=== PATIENT | female | born 1990 | race American Indian/Alaskan Native ===

== ENCOUNTER 2019-12-23 11:55 | Inpatient (IN) | payer BC, OTHER ==
[2019-12-23] MEDS ORDERED: fentaNYL 100 MCG/2 ML INJ IV PRN (13:57)
[2019-12-23] MEDS ORDERED: LIDOCAINE (2%) 20 MG/1 ML VIAL 20 ML MDV INFILTRATI ONE (13:57)
[2019-12-23] MEDS ORDERED: BUTORPHANOL 2 MG/1 ML INJ IV PRN ×2 (13:57)
[2019-12-23] MEDS ORDERED: NALOXONE 0.4 MG/1 ML INJ IV PRN (13:57)
[2019-12-23] MEDS ORDERED: TERBUTALINE 1 MG/1 ML INJ SUB-Q PRN (13:57)
[2019-12-23] MEDS ORDERED: TERBUTALINE 1 MG/1 ML INJ IVP PRN (13:57)
[2019-12-23] MEDS ORDERED: MINERAL OIL 30 ML ORAL LIQD PO PRN (13:57)
[2019-12-23] MEDS ORDERED: ePHEDrine SULFATE 50 MG/1 ML INJ IV PRN (13:57)
[2019-12-23] MEDS ORDERED: ONDANSETRON 4 MG/2 ML INJ IV PRN (13:57)
[2019-12-23] MEDS ORDERED: OXYTOCIN 20 UNIT/1000ML DRIP 20 UNITS/1,000 ML BAG IV SCH (14:00)
[2019-12-23] MEDS ORDERED: DINOPROSTONE 10 MG VAG SUPP VG ONE (14:57)
--- NOTE | 2019-12-23 15:23 | Ultrasound Report ---
ULTRASOUND BIOPHYSICAL PROFILE INDICATION / CLINICAL INFORMATION: Evaluate well-being. COMPARISON: None available. FINDINGS: BREATHING MOVEMENT = 2 GROSS BODY MOVEMENT = 0 TONE = 0 QUALITATIVE AMNIOTIC FLUID VOLUME = 2 TOTAL BIOPHYSICAL SCORE = 8 AMNIOTIC FLUID INDEX (cm) = 15.3 PRESENTATION: Cephalic. HEART RATE (beats per minute): 167 IMPRESSION: 1. biophysical profile = 08/19 Signer Name: Jak Rendon MD Signed: 12/23/2019 3:19 PM Workstation Name: [id number]
[2019-12-23 16:19] LABS: Hematocrit 38.8 % (30.3-42.9); Hemoglobin 12.4 gm/dl (10.1-14.3); Mean Corpuscular HGB Conc 32 % (30-34); Mean Corpuscular Volume 89 fl (79-97); Platelet Count 211 K/mm3 (140-440); Red Blood Count 4.36 M/mm3 (3.65-5.03); Red Cell Distribution Width 15.4 % (13.2-15.2)
[2019-12-23 16:37] LABS: Alanine Aminotransferase 31 units/L (7-56); Uric Acid 4.9 mg/dL (3.5-7.6)
[2019-12-23] MEDS: LACTATED RINGERS 1,000 ML IV SCH (17:00)
--- NOTE | 2019-12-23 18:14 | History and Physical Report ---
History of Present Illness Date of examination: 12/23/19 Date of admission: 12/23/19 14:56 Chief complaint: decreased movement History of present illness: Pt is a 29 year old CRISTINO 12/30/19 at 39w0d who presents with complaint of decreased movement since this morning. She denies vaginal bleeding or leakage of fluid. She has had care at [facility] with comanagement by [facility] complicated by morbid obesity, chronic hypertension on no meds, alpha thalassemia carrier, h/o 32 wk IUFD, placental lakes, genital herpes without lesion or prodrome, glucose intolerance, and two vessel cord. She is GBS negative. She does not desire future fertility. 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) Family/Genetic History: diabetes, hypertension, cancer Social history: no significant social history - Obstetrical History Expected Date of Delivery: 12/30/19 Actual Gestation: 39 Week(s) 0 Day(s) : 3 Para: 1 Hx # Term Pregnancies: 1 Number of Pregnancies: 1 Spontaneous Abortions: 0 Induced : 0 Number of Living Children: 1 Medications and Allergies Allergies Allergy/AdvReac Type Severity Reaction Status Date / Time No Known Allergies Allergy Unverified 10/22/19 12:36 Home Medications Medication Instructions Recorded Confirmed Last Taken Type Aspirin [Aspirin BABY CHEW TAB] 81 mg PO DAILY 10/22/19 10/22/19 10/21/19 22:30 History Loratadine 10 mg PO DAILY 10/22/19 10/22/19 10/21/19 22:30 History Vitamin 1 tab PO DAILY 10/22/19 10/22/19 10/21/19 09:00 History Active Meds: Active Medications Butorphanol Tartrate (Stadol) 1 mg IV Q2H PRN PRN Reason: Pain, Moderate(4-6) LABOR PAIN Butorphanol Tartrate (Stadol) 2 mg IV Q2H PRN PRN Reason: Pain , Severe (7-10) Ephedrine Sulfate (Ephedrine Sulfate) 10 mg IV Q2M PRN PRN Reason: Hypotension Fentanyl (Sublimaze) 100 mcg IV Q2H PRN PRN Reason: Pain,Severe (7-10) LABOR PAIN Oxytocin/Sodium Chloride (Pitocin/Ns 20 Unit/1000ml Drip) 20 units in 1,000 mls @ 125 mls/hr IV DIRECT LEYLA Oxytocin/Sodium Chloride (Pitocin/Ns 30 Unit/500ml) 30 units in 500 mls @ 1 mls/hr IV TITR LEYLA; Protocol Lactated Ringer's (Lactated Ringers) 1,000 mls @ 125 mls/hr IV DIRECT LEYLA Last Admin: 12/23/19 17:00 Dose: 125 mls/hr Documented by: Mineral Oil (Mineral Oil) 30 ml PO QHS PRN PRN Reason: Constipation Naloxone HCl (Naloxone) 0.1 mg IV Q2MIN PRN PRN Reason: Res Rate </= 8 or 02 SAT < 92% Ondansetron HCl (Zofran) 4 mg IV Q8H PRN PRN Reason: Nausea And Vomiting Terbutaline Sulfate (Brethine) 0.25 mg SUB-Q ONCE PRN PRN Reason: Hyperstimulation/Hypertonicity Terbutaline Sulfate (Brethine) 0.25 mg IVP ONCE PRN PRN Reason: Hyperstimulation/Hypertonicity Review of Systems All systems: negative - Vital Signs Vital signs: Vital Signs Pulse BP 102 H 110/67 12/23/19 14:24 12/23/19 14:24 Temp Pulse Resp BP Pulse Ox 98.6 F 124 H 16 110/67 98 12/23/19 14:27 12/23/19 18:05 12/23/19 14:27 12/23/19 14:27 12/23/19 18:05 - Obstetrical FHR: auscultation normal Results Result Diagrams: 12/23/19 14:45 12/23/19 14:45 Abnormal lab results 12/23/19 12/23/19 Range/Units 14:45 14:45 RDW 15.4 H (13.2-15.2) % Creatinine 0.5 L (0.6-1.2) mg/dL AST 99 H (5-40) units/L Lactate Dehydrogenase 1185 H (91-180) units/L All other labs normal. Assessment and Plan A: IUP at 39w0d Decreased movement Nonreassuring status (BPP 4/8) H/o 32 wk IUFD Morbid Obesity Hypertension GBS Negative Undesired Fertility P: Admit to labor and delivery Begin cervical ripening PIH panel Closely monitor maternal and status
[2019-12-24] MEDS ORDERED: OXYTOCIN DRIP 30 UNITS/500 ML BAG IV SCH (02:00)
--- NOTE | 2019-12-24 08:03 | Progress Note ---
Assessment and Plan A: IUP at 39w0d Decreased movement Nonreassuring status (BPP 4/8) H/o 32 wk IUFD Morbid Obesity Chronic hypertension GBS Negative 2 vessel cord Undesired Fertility P: Cytotec sublingual q4hr Closely monitor maternal and status Subjective - Subjective Date of service: 12/24/19 Principal diagnosis: Decreased movement Interval history: HD2 of IOL for BPP 4/8, morbid obesity, h/o IUFD, and chronic hypertension. She has received Cervidil overnight and is starting to feel contractions. Patient reports: contractions, no new complaints, no loss of fluid, no vaginal bleeding Objective - Vital Signs Vital Signs: Vital Signs - 12hr 12/23/19 12/23/19 12/23/19 20:02 20:07 20:12 Pulse Rate 116 H 107 H 110 H O2 Sat by Pulse 100 99 100 Oximetry 12/23/19 12/23/19 12/23/19 20:17 20:22 20:27 Pulse Rate 114 H 114 H 119 H O2 Sat by Pulse 100 100 100 Oximetry 12/23/19 12/23/19 12/23/19 20:32 20:37 20:42 Pulse Rate 123 H 117 H 121 H O2 Sat by Pulse 99 99 99 Oximetry 12/23/19 12/23/19 12/23/19 20:47 20:54 20:59 Pulse Rate 115 H 112 H 122 H O2 Sat by Pulse 99 100 99 Oximetry 12/23/19 12/23/19 12/23/19 21:04 21:09 21:14 Pulse Rate 110 H 113 H 108 H O2 Sat by Pulse 98 100 100 Oximetry 12/23/19 12/23/19 12/23/19 21:19 21:24 21:29 Pulse Rate 109 H 112 H 116 H O2 Sat by Pulse 99 98 99 Oximetry 12/23/19 12/23/19 12/23/19 21:34 21:39 21:44 Pulse Rate 117 H 119 H 128 H O2 Sat by Pulse 98 99 99 Oximetry 12/23/19 12/23/19 12/23/19 21:49 21:54 21:59 Pulse Rate 107 H 127 H 116 H O2 Sat by Pulse 98 97 98 Oximetry 12/23/19 12/23/19 12/23/19 22:04 22:09 22:14 Pulse Rate 116 H 121 H 117 H O2 Sat by Pulse 97 99 98 Oximetry 12/23/19 12/23/19 12/23/19 22:19 22:24 22:29 Pulse Rate 113 H 110 H 110 H O2 Sat by Pulse 98 99 100 Oximetry 12/23/19 12/23/19 12/23/19 22:34 22:39 22:44 Pulse Rate 100 H 114 H 105 H O2 Sat by Pulse 97 96 97 Oximetry 12/23/19 12/23/19 12/23/19 22:49 22:54 22:59 Pulse Rate 114 H 106 H 111 H O2 Sat by Pulse 98 97 98 Oximetry 12/23/19 12/23/19 12/23/19 23:04 23:09 23:14 Pulse Rate 101 H 108 H 116 H O2 Sat by Pulse 97 99 98 Oximetry 12/23/19 12/23/19 12/23/19 23:19 23:24 23:29 Pulse Rate 104 H 113 H 107 H O2 Sat by Pulse 99 100 99 Oximetry 12/23/19 12/23/19 12/23/19 23:34 23:39 23:44 Pulse Rate 100 H 97 H 105 H O2 Sat by Pulse 97 99 97 Oximetry 12/23/19 12/24/19 12/24/19 23:49 00:00 00:05 Pulse Rate 103 H 122 H 112 H O2 Sat by Pulse 98 99 99 Oximetry 12/24/19 12/24/19 12/24/19 00:10 00:15 00:20 Pulse Rate 116 H 109 H 115 H O2 Sat by Pulse 98 97 98 Oximetry 12/24/19 12/24/19 12/24/19 00:25 00:30 00:35 Pulse Rate 105 H 115 H 105 H O2 Sat by Pulse 99 97 98 Oximetry 12/24/19 12/24/19 12/24/19 00:40 00:45 00:50 Pulse Rate 107 H 112 H 104 H O2 Sat by Pulse 97 98 97 Oximetry 12/24/19 12/24/19 12/24/19 00:55 01:00 01:05 Pulse Rate 110 H 113 H 107 H O2 Sat by Pulse 98 98 97 Oximetry 12/24/19 12/24/19 12/24/19 01:10 01:15 01:20 Pulse Rate 98 H 112 H 109 H O2 Sat by Pulse 98 98 96 Oximetry 12/24/19 12/24/19 12/24/19 01:25 01:30 01:35 Pulse Rate 99 H 105 H 116 H O2 Sat by Pulse 97 97 98 Oximetry 12/24/19 12/24/19 12/24/19 01:42 01:47 01:52 Pulse Rate 129 H 114 H 116 H O2 Sat by Pulse 100 100 100 Oximetry 12/24/19 12/24/19 12/24/19 01:57 02:02 02:07 Pulse Rate 110 H 109 H 114 H O2 Sat by Pulse 99 100 99 Oximetry 12/24/19 12/24/19 12/24/19 02:14 02:19 02:24 Pulse Rate 109 H 105 H 108 H O2 Sat by Pulse 98 98 99 Oximetry 12/24/19 12/24/19 12/24/19 02:29 02:34 02:39 Pulse Rate 106 H 105 H 124 H O2 Sat by Pulse 99 100 99 Oximetry 12/24/19 12/24/19 12/24/19 02:44 02:49 02:54 Pulse Rate 109 H 115 H 105 H O2 Sat by Pulse 97 98 98 Oximetry 12/24/19 12/24/19 12/24/19 02:59 03:04 03:09 Pulse Rate 101 H 101 H 103 H O2 Sat by Pulse 98 97 98 Oximetry 12/24/19 12/24/19 12/24/19 03:14 03:19 03:24 Pulse Rate 90 98 H 102 H O2 Sat by Pulse 96 97 98 Oximetry 12/24/19 12/24/19 12/24/19 03:29 03:34 03:39 Pulse Rate 100 H 102 H 110 H O2 Sat by Pulse 97 98 99 Oximetry 12/24/19 12/24/19 12/24/19 03:55 04:00 04:05 Pulse Rate 114 H 120 H 113 H O2 Sat by Pulse 98 98 98 Oximetry 12/24/19 12/24/19 12/24/19 04:10 04:15 04:20 Pulse Rate 109 H 105 H 100 H O2 Sat by Pulse 98 98 98 Oximetry 12/24/19 12/24/19 12/24/19 04:25 04:30 04:35 Pulse Rate 111 H 101 H 98 H O2 Sat by Pulse 98 98 98 Oximetry 12/24/19 12/24/19 12/24/19 04:40 04:45 04:50 Pulse Rate 95 H 91 H 92 H O2 Sat by Pulse 98 97 97 Oximetry 12/24/19 12/24/19 12/24/19 04:55 05:00 05:05 Pulse Rate 99 H 97 H 96 H O2 Sat by Pulse 99 99 99 Oximetry 12/24/19 12/24/19 12/24/19 05:10 05:15 05:20 Pulse Rate 97 H 105 H 100 H O2 Sat by Pulse 98 98 97 Oximetry 12/24/19 12/24/19 12/24/19 05:25 05:30 05:35 Pulse Rate 98 H 98 H 102 H O2 Sat by Pulse 97 97 99 Oximetry 12/24/19 12/24/19 12/24/19 05:51 05:56 06:01 Pulse Rate 121 H 101 H 103 H O2 Sat by Pulse 99 98 98 Oximetry 12/24/19 12/24/19 12/24/19 06:06 06:11 06:16 Pulse Rate 100 H 98 H 99 H O2 Sat by Pulse 97 97 97 Oximetry 12/24/19 12/24/19 12/24/19 06:21 06:26 06:31 Pulse Rate 93 H 96 H 95 H O2 Sat by Pulse 97 98 98 Oximetry 12/24/19 12/24/19 12/24/19 06:36 06:41 06:46 Pulse Rate 104 H 98 H 98 H O2 Sat by Pulse 99 98 98 Oximetry 12/24/19 12/24/19 12/24/19 06:51 06:56 07:01 Pulse Rate 99 H 101 H 100 H O2 Sat by Pulse 98 98 99 Oximetry 12/24/19 12/24/19 12/24/19 07:06 07:17 07:22 Pulse Rate 111 H 116 H 114 H O2 Sat by Pulse 97 100 98 Oximetry 12/24/19 12/24/19 12/24/19 07:27 07:28 07:32 Pulse Rate 102 H 104 H 105 H O2 Sat by Pulse 97 94 98 Oximetry 12/24/19 12/24/19 12/24/19 07:37 07:42 07:47 Pulse Rate 103 H 94 H 102 H O2 Sat by Pulse 98 97 97 Oximetry 12/24/19 07:52 Pulse Rate 104 H O2 Sat by Pulse 99 Oximetry - Exam Lungs: Normal air movement Abdomen: Present: soft FHR: other (difficulty tracing for long enough ) Uterine Contraction Monitor Mode: External Cervical Dilatation: 1 (per RN) Uterine Contraction Pattern: Irregular Extremities: normal - Labs Labs: Abnormal Labs 12/23/19 12/23/19 14:45 14:45 RDW 15.4 H Creatinine 0.5 L AST 99 H Lactate Dehydrogenase 1185 H Laboratory Results - last 24 hr 12/23/19 12/23/19 12/23/19 14:45 14:45 14:45 WBC 8.5 RBC 4.36 Hgb 12.4 Hct 38.8 MCV 89 MCH 29 MCHC 32 RDW 15.4 H Plt Count 211 Creatinine 0.5 L Estimated GFR > 60 Uric Acid 4.9 AST 99 H ALT 31 Lactate Dehydrogenase 1185 H Blood Type O POSITIVE Antibody Screen Negative
[2019-12-24] MEDS: miSOPROStol 25 MCG TAB PO SCH ×3 (09:55→20:04)
[2019-12-24] MEDS: LACTATED RINGERS 1,000 ML IV SCH (19:13)
[2019-12-24] MEDS ORDERED: ACETAMINOPHEN 325 MG TAB PO PRN (20:20)
[2019-12-25] MEDS: miSOPROStol 25 MCG TAB PO SCH ×2 (00:09→04:15)
[2019-12-25] MEDS ORDERED: LANOLIN/ZINC/DIMETHICONE (LANSINOH) 7 GM TP PRN ×2 (00:49→18:04)
--- NOTE | 2019-12-25 08:05 | Progress Note ---
Assessment and Plan A: IUP at 39w2d H/o 32 wk IUFD Morbid Obesity Chronic hypertension GBS Negative 2 vessel cord Undesired Fertility P: AROM scant clear fluid at 0740 Initiate low dose-Pitocin Closely monitor maternal and status Anticipate Subjective - Subjective Date of service: 12/25/19 Principal diagnosis: Decreased movement Interval history: HD3 of IOL for BPP 08/19, morbid obesity, h/o IUFD, and chronic hypertension. She has received Cervidil and Cytotec. Cervix remains unfavorable for induction. Patient reports: movement normal, contractions, no new complaints, no loss of fluid, no vaginal bleeding Objective - Vital Signs Vital Signs: Vital Signs - 12hr 12/24/19 12/24/19 12/24/19 20:14 20:19 20:24 Temperature Pulse Rate 116 H 114 H 110 H Respiratory Rate Blood Pressure O2 Sat by Pulse 99 98 98 Oximetry 12/24/19 12/24/19 12/24/19 20:29 20:34 20:39 Temperature Pulse Rate 113 H 113 H 111 H Respiratory Rate Blood Pressure O2 Sat by Pulse 99 99 98 Oximetry 12/24/19 12/24/19 12/24/19 20:44 20:49 20:54 Temperature Pulse Rate 104 H 109 H 104 H Respiratory Rate Blood Pressure O2 Sat by Pulse 99 99 98 Oximetry 12/24/19 12/24/19 12/24/19 20:59 21:04 21:09 Temperature Pulse Rate 105 H 108 H 103 H Respiratory Rate Blood Pressure O2 Sat by Pulse 98 99 98 Oximetry 12/24/19 12/24/19 12/24/19 21:21 21:26 21:31 Temperature Pulse Rate 117 H 113 H 115 H Respiratory Rate Blood Pressure O2 Sat by Pulse 99 98 99 Oximetry 12/24/19 12/24/19 12/24/19 21:36 21:41 21:46 Temperature Pulse Rate 106 H 104 H 102 H Respiratory Rate Blood Pressure O2 Sat by Pulse 98 99 99 Oximetry 12/24/19 12/24/19 12/24/19 21:51 21:56 22:01 Temperature Pulse Rate 105 H 102 H 107 H Respiratory Rate Blood Pressure O2 Sat by Pulse 99 98 98 Oximetry 12/24/19 12/24/19 12/24/19 22:06 22:11 22:16 Temperature Pulse Rate 99 H 104 H 106 H Respiratory Rate Blood Pressure O2 Sat by Pulse 98 99 99 Oximetry 12/24/19 12/24/19 12/24/19 22:21 22:26 22:31 Temperature Pulse Rate 106 H 101 H 102 H Respiratory Rate Blood Pressure O2 Sat by Pulse 98 98 98 Oximetry 12/24/19 12/24/19 12/24/19 22:36 22:41 22:53 Temperature Pulse Rate 99 H 99 H 112 H Respiratory Rate Blood Pressure O2 Sat by Pulse 99 98 100 Oximetry 12/24/19 12/24/19 12/24/19 22:58 23:03 23:08 Temperature Pulse Rate 105 H 102 H 101 H Respiratory Rate Blood Pressure O2 Sat by Pulse 99 98 98 Oximetry 12/24/19 12/24/19 12/24/19 23:13 23:18 23:23 Temperature Pulse Rate 100 H 96 H 94 H Respiratory Rate Blood Pressure O2 Sat by Pulse 98 98 99 Oximetry 12/24/19 12/24/19 12/24/19 23:26 23:28 23:33 Temperature Pulse Rate 98 H 102 H 93 H Respiratory Rate Blood Pressure O2 Sat by Pulse 93 96 98 Oximetry 12/24/19 12/24/19 12/24/19 23:38 23:43 23:48 Temperature Pulse Rate 96 H 96 H 95 H Respiratory Rate Blood Pressure O2 Sat by Pulse 98 99 98 Oximetry 12/24/19 12/24/19 12/25/19 23:53 23:58 00:03 Temperature Pulse Rate 101 H 98 H 106 H Respiratory Rate Blood Pressure O2 Sat by Pulse 97 98 98 Oximetry 12/25/19 12/25/19 12/25/19 00:08 00:13 00:18 Temperature Pulse Rate 105 H 104 H 107 H Respiratory Rate Blood Pressure O2 Sat by Pulse 99 98 98 Oximetry 12/25/19 12/25/19 12/25/19 00:23 00:28 00:33 Temperature Pulse Rate 95 H 95 H 99 H Respiratory Rate Blood Pressure O2 Sat by Pulse 97 97 97 Oximetry 12/25/19 12/25/19 12/25/19 00:34 00:44 00:49 Temperature Pulse Rate 97 H 111 H 108 H Respiratory Rate Blood Pressure O2 Sat by Pulse 92 99 98 Oximetry 12/25/19 12/25/19 12/25/19 00:54 00:59 01:04 Temperature Pulse Rate 102 H 100 H 102 H Respiratory Rate Blood Pressure O2 Sat by Pulse 98 99 97 Oximetry 12/25/19 12/25/19 12/25/19 01:09 01:14 01:19 Temperature Pulse Rate 95 H 97 H 112 H Respiratory Rate Blood Pressure O2 Sat by Pulse 100 98 99 Oximetry 12/25/19 12/25/19 12/25/19 01:24 01:29 01:32 Temperature Pulse Rate 95 H 104 H 92 H Respiratory Rate Blood Pressure O2 Sat by Pulse 98 99 89 Oximetry 12/25/19 12/25/19 12/25/19 01:34 01:39 01:44 Temperature Pulse Rate 89 102 H 96 H Respiratory Rate Blood Pressure O2 Sat by Pulse 97 99 97 Oximetry 12/25/19 12/25/19 12/25/19 01:49 01:54 01:59 Temperature Pulse Rate 98 H 96 H 92 H Respiratory Rate Blood Pressure O2 Sat by Pulse 98 96 98 Oximetry 12/25/19 12/25/19 12/25/19 02:01 02:04 02:08 Temperature Pulse Rate 94 H 93 H 101 H Respiratory Rate Blood Pressure O2 Sat by Pulse 94 98 92 Oximetry 12/25/19 12/25/19 12/25/19 02:09 02:14 02:19 Temperature Pulse Rate 102 H 96 H 88 Respiratory Rate Blood Pressure O2 Sat by Pulse 95 100 100 Oximetry 12/25/19 12/25/19 12/25/19 02:24 02:29 02:42 Temperature Pulse Rate 92 H 94 H 118 H Respiratory Rate Blood Pressure O2 Sat by Pulse 100 100 98 Oximetry 12/25/19 12/25/19 12/25/19 02:47 02:52 02:54 Temperature Pulse Rate 112 H 93 H 89 Respiratory Rate Blood Pressure O2 Sat by Pulse 98 97 93 Oximetry 12/25/19 12/25/19 12/25/19 02:57 03:01 03:02 Temperature Pulse Rate 91 H 90 97 H Respiratory Rate Blood Pressure O2 Sat by Pulse 97 94 97 Oximetry 12/25/19 12/25/19 12/25/19 03:07 03:10 03:12 Temperature Pulse Rate 94 H 96 H 89 Respiratory Rate Blood Pressure O2 Sat by Pulse 97 94 97 Oximetry 12/25/19 12/25/19 12/25/19 03:17 03:22 03:27 Temperature Pulse Rate 100 H 97 H 90 Respiratory Rate Blood Pressure O2 Sat by Pulse 97 99 98 Oximetry 12/25/19 12/25/19 12/25/19 03:32 03:34 03:37 Temperature Pulse Rate 92 H 94 H 89 Respiratory Rate Blood Pressure O2 Sat by Pulse 98 93 97 Oximetry 12/25/19 12/25/19 12/25/19 03:39 03:42 03:47 Temperature Pulse Rate 92 H 90 106 H Respiratory Rate Blood Pressure O2 Sat by Pulse 93 99 98 Oximetry 12/25/19 12/25/19 12/25/19 03:52 03:57 04:00 Temperature Pulse Rate 82 88 85 Respiratory Rate Blood Pressure O2 Sat by Pulse 97 96 94 Oximetry 12/25/19 12/25/19 12/25/19 04:02 04:06 04:07 Temperature Pulse Rate 98 H 105 H 93 H Respiratory Rate Blood Pressure O2 Sat by Pulse 97 93 100 Oximetry 12/25/19 12/25/19 12/25/19 04:12 04:26 04:31 Temperature Pulse Rate 105 H 103 H 99 H Respiratory Rate Blood Pressure O2 Sat by Pulse 99 98 98 Oximetry 12/25/19 12/25/19 12/25/19 04:36 04:41 04:46 Temperature Pulse Rate 100 H 102 H 99 H Respiratory Rate Blood Pressure O2 Sat by Pulse 98 98 98 Oximetry 12/25/19 12/25/19 12/25/19 04:51 04:56 05:01 Temperature Pulse Rate 98 H 97 H 97 H Respiratory Rate Blood Pressure O2 Sat by Pulse 98 98 98 Oximetry 12/25/19 12/25/19 12/25/19 05:06 05:11 05:16 Temperature Pulse Rate 94 H 99 H 98 H Respiratory Rate Blood Pressure O2 Sat by Pulse 99 97 98 Oximetry 12/25/19 12/25/19 12/25/19 05:21 05:26 05:31 Temperature Pulse Rate 94 H 109 H 97 H Respiratory Rate Blood Pressure O2 Sat by Pulse 98 97 98 Oximetry 12/25/19 12/25/19 12/25/19 05:40 05:45 05:50 Temperature Pulse Rate 115 H 96 H 101 H Respiratory Rate Blood Pressure O2 Sat by Pulse 100 98 98 Oximetry 12/25/19 12/25/19 12/25/19 05:55 06:00 06:05 Temperature Pulse Rate 94 H 101 H 99 H Respiratory Rate Blood Pressure O2 Sat by Pulse 98 99 98 Oximetry 12/25/19 12/25/19 12/25/19 06:10 06:15 06:18 Temperature Pulse Rate 99 H 97 H 88 Respiratory Rate Blood Pressure O2 Sat by Pulse 98 96 94 Oximetry 12/25/19 12/25/19 12/25/19 06:20 06:23 06:31 Temperature Pulse Rate 83 99 H 111 H Respiratory Rate Blood Pressure O2 Sat by Pulse 95 94 99 Oximetry 12/25/19 12/25/19 12/25/19 06:36 06:39 06:41 Temperature Pulse Rate 90 96 H 87 Respiratory Rate Blood Pressure O2 Sat by Pulse 98 94 98 Oximetry 12/25/19 12/25/19 12/25/19 06:46 06:47 06:51 Temperature Pulse Rate 105 H 108 H 82 Respiratory Rate Blood Pressure O2 Sat by Pulse 94 93 97 Oximetry 12/25/19 12/25/19 12/25/19 06:52 06:56 07:01 Temperature Pulse Rate 80 88 85 Respiratory Rate Blood Pressure O2 Sat by Pulse 93 100 100 Oximetry 12/25/19 12/25/19 12/25/19 07:06 07:08 07:11 Temperature Pulse Rate 95 H 99 H 94 H Respiratory Rate Blood Pressure O2 Sat by Pulse 99 94 98 Oximetry 12/25/19 12/25/19 12/25/19 07:14 07:16 07:21 Temperature 98.3 F Pulse Rate 101 H 95 H 96 H Respiratory 20 Rate Blood Pressure 132/82 O2 Sat by Pulse 98 100 Oximetry 12/25/19 12/25/19 12/25/19 07:26 07:31 07:36 Temperature Pulse Rate 100 H 111 H 98 H Respiratory Rate Blood Pressure O2 Sat by Pulse 98 99 99 Oximetry 12/25/19 12/25/19 12/25/19 07:46 07:51 07:56 Temperature Pulse Rate 105 H 99 H 104 H Respiratory Rate Blood Pressure O2 Sat by Pulse 100 99 98 Oximetry 12/25/19 08:01 Temperature Pulse Rate 102 H Respiratory Rate Blood Pressure O2 Sat by Pulse 97 Oximetry - Exam Lungs: Normal air movement Abdomen: Present: soft FHR: category 1 Uterine Contraction Monitor Mode: External Cervical Dilatation: 2 Cervical Effacement Percentage: 20 station: -3 Uterine Contraction Pattern: Irregular - Labs Labs: Abnormal Labs 12/23/19 12/23/19 14:45 14:45 RDW 15.4 H Creatinine 0.5 L AST 99 H Lactate Dehydrogenase 1185 H
--- NOTE | 2019-12-25 12:33 | Event Note ---
Date: 12/25/19 SVE /-3, right hand presenting. Hand displaced, IUPC and FSE placed. Continue to closely monitor. Anticipate .
[2019-12-25] MEDS: LACTATED RINGERS 1,000 ML IV SCH (13:37)
[2019-12-25] MEDS ORDERED: LIDOCAINE (2%) 20 MG/1 ML VIAL 20 ML MDV INFILTRATI ONE (17:28)
--- NOTE | 2019-12-25 17:55 | Procedure Note ---
OB Delivery Note - Delivery Date of Delivery: 12/25/19 Surgeon: RED CALVILLO ([facility]) Estimated blood loss: other (400cc) - Vaginal Delivery presentation: vertex, compound (right arm presenting) Intrapartum events: PROM->1hr before delivery, mult. late decelerations, mult.variable deceleratio Delivery induction: other (Cervidil and Cytotec) Delivery augmentation: rupture of membranes, pitocin Delivery monitor: internal FHT Route of delivery: Delivery placenta: spontaneous Delivery cord: nuchal cord (nuchal x1, body x2), 2 umbilical vessels Episiotomy: none Delivery laceration: other (sulcus and left labial) Delivery repair: vicryl Anesthesia: local Delivery comments: Pt noted to have lip of cervix, reduced with pushing due to prolonged FHR deceleration. Right arm delivered, followed by head delivered OA, resituted LOT. Somersaulted through nuchal and body cords. Bulb suction on maternal abdomen. Apgars 8/9. Delayed cord clamping, cut by grandmother. Pitocin infusing. Placenta delivered spontaneously and intact, 2 vessel cord. Sulcus laceration and left labial laceration repaired with 3-0 Vicryl in running fashion to excellent hemostasis. Counts correct. - A at 1 minute: 8 at 5 minutes: 9 Infant Gender: Male
[2019-12-25] MEDS ORDERED: diphenhydrAMINE 25 MG CAP PO PRN (18:04)
[2019-12-25] MEDS ORDERED: ONDANSETRON 4 MG/2 ML INJ IV PRN (18:04)
[2019-12-25] MEDS ORDERED: MAGNESIUM HYDROXIDE (MOM) ORAL LIQD UDC PO PRN (18:04)
[2019-12-25] MEDS ORDERED: PROMETHAZINE 25 MG TAB PO PRN (18:04)
[2019-12-25] MEDS ORDERED: WITCH HAZEL/ GLYCERIN PAD TP PRN (18:04)
[2019-12-25] MEDS ORDERED: PROMETHAZINE 25 MG RECT SUPP PR PRN (18:04)
[2019-12-25] MEDS ORDERED: ACETAMINOPHEN 325 MG TAB PO PRN (18:04)
[2019-12-25] MEDS ORDERED: BENZOCAINE/MENTHOL 20/0.5% TOP SPRAY 56 GM TP PRN (18:04)
[2019-12-26] MEDS ORDERED: DIPHtheria,PERTUSSIS(ACELL),TETANUS VACCINE/PF 0.5 ML VIAL IM ONE (05:55)
--- NOTE | 2019-12-26 07:56 | Progress Note ---
Assessment and Plan - Patient Problems (1) Vaginal delivery Current Visit: Yes Status: Acute Plan to address problem: Patient doing well Discharge home Subjective - Subjective Date of service: 12/26/19 Principal diagnosis: Decreased movement Interval history: The patient was without any significant complaints. She reports ports that her pain is well controlled. She is tolerating regular diet. Patient reports: appetite normal, voiding normally, pain well controlled [place]: doing well Objective - Vital Signs Latest vital signs: Vital Signs Temp Pulse Resp BP Pulse Ox 12/26/19 04:56 116 H 12/26/19 01:10 120 H 12/25/19 23:51 98.2 F 128 H 20 110/65 96 12/25/19 20:03 98.9 F 118 H 22 128/69 98 12/25/19 19:41 109 H 145/81 12/25/19 19:15 121 H 118/77 12/25/19 19:01 125 H 121/75 12/25/19 18:15 129 H 128/73 12/25/19 17:48 103 H 100 12/25/19 17:45 110 H 128/65 12/25/19 17:43 107 H 100 12/25/19 17:38 105 H 100 12/25/19 17:33 108 H 100 12/25/19 17:30 106 H 116/66 12/25/19 17:28 105 H 100 12/25/19 17:23 118 H 100 12/25/19 17:18 123 H 100 12/25/19 17:13 118 H 99 12/25/19 17:08 111 H 100 12/25/19 17:03 123 H 100 12/25/19 16:58 121 H 100 12/25/19 16:53 112 H 133/83 100 12/25/19 16:48 124 H 100 12/25/19 16:46 118 H 94 12/25/19 16:43 115 H 99 12/25/19 16:40 123 H 93 12/25/19 16:38 113 H 98 12/25/19 16:33 125 H 100 12/25/19 16:28 115 H 100 12/25/19 16:23 121 H 130/82 100 12/25/19 16:18 117 H 100 12/25/19 16:13 115 H 100 12/25/19 16:08 127 H 97 12/25/19 16:03 117 H 100 12/25/19 15:58 110 H 99 12/25/19 15:53 123 H 141/92 67 L 12/25/19 15:48 114 H 97 12/25/19 15:43 121 H 100 12/25/19 15:38 115 H 99 12/25/19 15:33 112 H 98 12/25/19 15:28 109 H 99 12/25/19 15:23 120 H 123/86 99 12/25/19 15:18 105 H 99 12/25/19 15:13 121 H 98 12/25/19 15:08 109 H 99 12/25/19 15:02 111 H 98 12/25/19 14:57 116 H 99 12/25/19 14:53 110 H 138/88 12/25/19 14:52 113 H 99 12/25/19 14:47 108 H 100 12/25/19 14:42 109 H 99 12/25/19 14:37 118 H 98 12/25/19 14:32 111 H 100 12/25/19 14:27 106 H 99 12/25/19 14:23 108 H 129/85 12/25/19 14:22 109 H 99 12/25/19 14:17 107 H 100 12/25/19 14:15 110 H 62 L 12/25/19 14:12 108 H 98 12/25/19 14:07 108 H 99 12/25/19 14:02 104 H 99 12/25/19 13:57 114 H 100 12/25/19 13:53 104 H 133/86 12/25/19 13:52 104 H 98 12/25/19 13:47 114 H 99 12/25/19 13:42 116 H 100 12/25/19 13:37 106 H 98 12/25/19 12:08 110 H 100 12/25/19 12:03 121 H 100 12/25/19 11:58 116 H 100 12/25/19 11:53 114 H 131/88 100 12/25/19 11:48 115 H 100 12/25/19 11:43 111 H 98 12/25/19 11:38 105 H 98 12/25/19 11:33 113 H 98 12/25/19 11:28 107 H 98 12/25/19 11:23 111 H 128/81 98 12/25/19 11:18 111 H 98 12/25/19 11:16 98.8 F 20 12/25/19 11:13 109 H 99 12/25/19 10:53 110 H 124/81 12/25/19 10:51 114 H 97 12/25/19 10:46 120 H 98 12/25/19 10:41 125 H 99 12/25/19 10:36 116 H 99 12/25/19 10:31 120 H 98 12/25/19 10:26 114 H 98 12/25/19 10:23 108 H 130/79 12/25/19 10:21 121 H 100 12/25/19 10:17 99 H 92 12/25/19 10:16 93 H 96 12/25/19 10:11 106 H 98 12/25/19 10:06 120 H 98 12/25/19 10:01 107 H 97 12/25/19 09:56 112 H 99 12/25/19 09:52 118 H 131/78 12/25/19 09:51 118 H 98 12/25/19 09:46 120 H 99 12/25/19 09:41 119 H 98 12/25/19 09:36 109 H 98 12/25/19 09:31 122 H 98 12/25/19 09:26 117 H 98 12/25/19 08:56 107 H 97 12/25/19 08:51 112 H 97 12/25/19 08:46 103 H 98 12/25/19 08:41 113 H 99 12/25/19 08:36 102 H 99 12/25/19 08:31 109 H 99 12/25/19 08:26 113 H 99 12/25/19 08:21 98 H 99 12/25/19 08:16 108 H 98 12/25/19 08:11 104 H 99 12/25/19 08:06 105 H 98 12/25/19 08:01 102 H 97 12/25/19 07:56 104 H 98 Intake and Output 12/25/19 12/26/19 12/26/19 22:59 06:59 14:59 Intake Total 240 960 Output Total 1100 Balance -860 960 Intake: Oral 240 960 Output: Urine 1100 Void 1100 Other: Total, Intake Amount 240 480 Total, Output Amount 600 # Voids Void 1 1 # Bowel Movements 0 0 - Exam Uterus: Present: normal, firm
--- NOTE | 2019-12-26 07:57 | Discharge Summary ---
Providers - Providers Date of Admission: 12/23/19 14:56 Date of discharge: 12/26/19 Attending physician: ARMANDO SPARKS Primary care physician: ARMANDO SPARKS Hospitalization Reason for admission: induction of labor Delivery: Discharge diagnosis: IUP at term delivered Hospital course: The patient was admitted for induction of labor secondary to decreased movement and a history of chronic hypertension. The patient had a successful vaginal delivery. Her course was uneventful. Condition at discharge: Good Disposition: DC-01 TO HOME OR SELFCARE - Discharge Diagnoses (1) Vaginal delivery Status: Acute Plan - Discharge Medications Prescriptions: Ibuprofen [Motrin] 600 mg PO Q6H PRN #60 tablet PRN Reason: Pain HYDROcodone/APAP 5-325 [Hurt 5/325] 1 each PO Q6HR PRN #15 tablet PRN Reason: Pain - Provider Discharge Summary Activity: no sex for 6 weeks, no heavy lifting 4 weeks, no strenuous exercise Diet: routine Instructions: routine Additional instructions: [] Smoking cessation referral if applicable(refer to patient education folder for contact #) [] Refer to [facility] Booklet Call your doctor immediately for: * Fever > 100.5 * Heavy vaginal bleeding ( >1 pad per hour) * Severe persistent headache * Shortness of breath * Reddened, hot, painful area to leg or breast * Schedule visit in 4 weeks - Follow up plan
[2019-12-26] MEDS: IBUPROFEN 600 MG TAB PO SCH ×2 (10:09→21:48)
[2019-12-26 12:26] LABS: Hematocrit 32.1 % (30.3-42.9)
[2019-12-26 16:45] VITALS: BP 124/78
== END 2019-12-26 22:20 | disposition home or self-care (01) | DRG 768 ==
LOC: TRG 11:55 → APU 12:02 → TRG 14:54 → LD 14:56 → OB 12-25 19:55
PROVIDERS: ADMIT Obstetrics & Gynecology; ATTEND Obstetrics & Gynecology
PROC: 10E0XZZ Delivery of Products of Conception, External Approach (ICD-10-PCS; principal; 2019-12-25)
PROC: 0UQM0ZZ Repair Vulva, Open Approach (ICD-10-PCS; 2019-12-25)
PROC: 0UQG0ZZ Repair Vagina, Open Approach (ICD-10-PCS; 2019-12-25)
PROC: 10H07YZ Insertion of Other Device into Products of Conception, Via Natural or Artificial Opening (ICD-10-PCS; 2019-12-25)
PROC: 3E0P7VZ Introduction of Hormone into Female Reproductive, Via Natural or Artificial Opening (ICD-10-PCS; 2019-12-25)
PROC: 3E0234Z Introduction of Serum, Toxoid and Vaccine into Muscle, Percutaneous Approach (ICD-10-PCS; 2019-12-26)
DX: O76 Abnormality in fetal heart rate and rhythm complicating labor and delivery (principal); Z37.0 Single live birth; O99.354 Diseases of the nervous system complicating childbirth; O71.4 Obstetric high vaginal laceration alone; O10.92 Unspecified pre-existing hypertension complicating childbirth; G43.909 Migraine, unspecified, not intractable, without status migrainosus; O99.214 Obesity complicating childbirth; E66.01 Morbid (severe) obesity due to excess calories; O69.81X0 Labor and delivery complicated by cord around neck, without compression, not applicable or unspecified; Z79.82 Long term (current) use of aspirin; Z23 Encounter for immunization; Z82.49 Family history of ischemic heart disease and other diseases of the circulatory system; Z83.3 Family history of diabetes mellitus; Z90.49 Acquired absence of other specified parts of digestive tract; Z3A.39 39 weeks gestation of pregnancy
CPT/HCPCS: 36415; 59200; 76815; 76819; 82565; 83615; 84450; 84460; 84550; 85014; 85018; 85027; 86850; 86900; 86901; 88307; 90715; G0378; A6250; J2405; J2590; J3010; J7120

== ENCOUNTER 2020-11-17 07:50 | Day surgery (SDC) | payer BC, OTHER ==
[2020-11-12 12:33] LABS: Hematocrit 39.2 % (30.3-42.9); Hemoglobin 12.9 gm/dl (10.1-14.3); Mean Corpuscular HGB Conc 33 % (30-34); Mean Corpuscular Volume 82 fl (79-97); Platelet Count 327 K/mm3 (140-440); Red Blood Count 4.78 M/mm3 (3.65-5.03); Red Cell Distribution Width 14.2 % (13.2-15.2)
[~2020-11-17 07:50] MED LIST: ACETAMINOPHEN 500 MG TAB PO SCH; CELECOXIB 200 MG CAP PO NR; GABAPENTIN 300 MG CAP PO NR; LACTATED RINGERS 1,000 ML IV SCH; MIDAZOLAM 2 MG/2 ML INJ IV NR; SCOPOLAMINE TRANSDERMAL PATCH 72 HR TD NR
--- NOTE | 2020-11-17 08:21 | History and Physical Report ---
History of Present Illness Date of examination: 11/17/20 Chief complaint: Undesired Fertility History of present illness: Pt is a 30 year old -[place] female who presents for surgical sterilization by robotic bilateral salpingectomy. She is aware of tubal ligation and long acting reversible contraceptive methods and desires to proceed. 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 smear Family/Genetic History: diabetes, hypertension, cancer Social history: no significant social history - Obstetrical History : 3 Para: 3 Hx # Term Pregnancies: 2 Number of Pregnancies: 1 Spontaneous Abortions: 0 Induced : 0 Number of Living Children: 2 Medications and Allergies Allergies Allergy/AdvReac Type Severity Reaction Status Date / Time No Known Allergies Allergy Unverified 11/09/20 16:48 Home Medications Medication Instructions Recorded Confirmed Last Taken Type Norethindrone-E.estradiol-Iron 1 each PO DAILY 11/09/20 11/09/20 Unknown History [Junel Fe 1.5 mg-30 Mcg Tablet] Active Meds: Active Medications Acetaminophen (Acetaminophen 500 Mg Tab) 1,000 mg PO PREOP LEYLA Stop: 11/17/20 23:00 Celecoxib (Celecoxib 200 Mg Cap) 200 mg PO PREOP NR Stop: 11/17/20 20:00 Gabapentin (Gabapentin 300 Mg Cap) 300 mg PO PREOP NR Stop: 11/17/20 20:00 Lactated Ringer's (Lactated Ringers) 1,000 mls @ 100 mls/hr IV DIRECT LEYLA Stop: 11/17/20 23:59 Midazolam HCl (Midazolam 2 Mg/2 Ml Inj) 2 mg IV PREOP NR Stop: 11/17/20 20:00 Scopolamine (Scopolamine Transdermal Patch 72 Hr) 1 each TD PREOP NR Stop: 11/17/20 20:00 Review of Systems All systems: negative - Vital Signs Vital signs: Vital Signs Temp Pulse Resp BP Pulse Ox 98.2 F 80 20 125/84 97 11/12/20 12:10 11/12/20 12:10 11/12/20 12:10 11/12/20 12:10 11/12/20 12:10 Temp Pulse Resp BP Pulse Ox 98.2 F 80 20 125/84 97 11/12/20 12:10 11/12/20 12:10 11/12/20 12:10 11/12/20 12:10 11/12/20 12:10 - Physical Exam Breasts: Positive: deferred Abdomen: Positive: soft (obese ) Extremities: Positive: normal Results Result Diagrams: 11/12/20 06:00 All other labs normal. Assessment and Plan A: Undesired Fertility Morbid Obesity Hypertension Multiple Hernias P: Proceed with robotic bilateral salpingectomy, possible exploratory laparotomy and other indicated procedures
--- NOTE | 2020-11-17 08:36 | Anesthesia Consultation ---
Anesthesia Consult and Med Hx Date of service: 11/17/20 - Airway Anesthetic Teeth Evaluation: Good ROM Head & Neck: Adequate Mental/Hyoid Distance: Adequate Mallampati Class: Class I Intubation Access Assessment: Good - Pre-Operative Health Status ASA Pre-Surgery Classification: ASA3 Proposed Anesthetic Plan: General - Pulmonary Hx Smoking: No Hx Respiratory Symptoms: No - Cardiovascular System Hx Hypertension: No - Central Nervous System CVA: No - Endocrine Hx Renal Disease: No Hx Liver Disease: No Hx Insulin Dependent Diabetes: No Hx Non-Insulin Dependent Diabetes: No Hx Thyroid Disease: No - Other Systems Hx Obesity: Yes (BMI 46)
--- NOTE | 2020-11-17 08:37 | Anesthesia Day of Surgery ---
Anesthesia Day of Surgery - Day of Surgery Patient Examined: Yes Patient H&P Reviewed: Yes Patient is NPO: Yes
[2020-11-17] MEDS ORDERED: ROCURONIUM 50 MG/5 ML INJ IV ONE (10:44)
[2020-11-17] MEDS ORDERED: SUCCINYLCHOLINE CHLORIDE 200 MG/10 ML INJ MDV ONE (10:44)
[2020-11-17] MEDS ORDERED: LIDOCAINE MPF (2%) 20 MG/1 ML VIAL 5 ML ONE (10:44)
[2020-11-17] MEDS ORDERED: GLYCOPYRROLATE 0.4 MG/2 ML INJ ONE (10:44)
[2020-11-17] MEDS ORDERED: propofoL 200 MG/20 ML VIAL IV ONE (10:45)
[2020-11-17] MEDS ORDERED: fentaNYL 100 MCG/2 ML INJ ONE (10:45)
[2020-11-17] MEDS ORDERED: HYDROmorphone 1 MG/1 ML INJ ONE ×2 (10:45→13:49)
[2020-11-17] MEDS ORDERED: ONDANSETRON 4 MG/2 ML INJ ONE ×2 (11:22→14:07)
[2020-11-17] MEDS ORDERED: SUGAMMADEX SODIUM 200 MG/2 ML VIAL IV ONE (12:40)
[2020-11-17] MEDS ORDERED: BUPIVACAINE/PF (0.5%) 5 MG/1 ML 30 ML VIAL INFILTRATI ONE ×2 (12:42→13:02)
--- NOTE | 2020-11-17 12:56 | Operative Report ---
Operative Report Operative Report: Date of Surgery: November 17, 2020 Preoperative Diagnoses: 1) Undesired Fertility 2) Morbid Obesity BMI 47 3) Fibroid Uterus Postoperative Diagnoses: Same Procedure: Robotic-assisted Bilateral Salpingectomy Surgeon: Dominique Sarabia MD Locomotive Engineer Diesel: Adelaida Tang MD Anesthesia: General Endotracheal Anesthesia Findings: 1) Anteverted uterus that sounded to 8 cm 2) Normal appearing ovaries and fallopian tubes 3) Small subserosal fibroid at uterine fundus EBL: 30 mL Specimen: Bilateral fallopian tubes to pathology Drains: None Indication for Procedure: The patient is a 30 year old -[place] morbidly obese female who presents for surgical sterilization via bilateral salpingectomy. Procedure In Detail: After the benefits, risks, alternatives and complications were explained to the patient she gave informed consent for the procedure. She was then taken to the operating room with her IV noted to be running well and placed in the dorsal supine position. SCDs were noted to be in place and functioning. General endotracheal anesthesia was then induced without difficulty. The patient was prepped and draped in a normal sterile fashion. A timeout was performed. A spence catheter was placed to drain the bladder. A bivalve speculum was placed in the patient's vagina and a single-tooth tenaculum placed on the anterior lip of the cervix. The uterus was sounded with the uterine sound to 8 cm. A Ventario uterine manipulator was placed, and the tenaculum and bivalve speculum were then removed. The surgeon's gloves were changed. Attention was then turned to the abdominal entry. A 12 mm supraumbilical skin incision was made with the knife. A Veress needle was placed and peritoneal entry was confirmed with a saline drop test. The peritoneum was insufflated with CO2 gas to a pressure of 15 mm Hg. The 12 mm trocar was then placed under direct visualization. An 8 mm robotic trocar was placed 10 cm to the left of the supraumbilical incision. Another 8 mm robotic trocar was placed 10 cm to the right of the supraumbilical incision. An additional 5 mm right lateral trocar was then placed as the accessory port. The supraumbilical 12 mm trocar site was reapproximated with 0-Vicryl suture using the Glynn Hameed device. The patient was then placed in steep Trendelenburg. The da Sinai robot was then engaged. A fenestrated forcep was placed in arm 2 and a monopolar scissors were placed in arm 1. Anatomic survey was performed, with small subserosal fibroid, normal ovaries and fallopian tubes noted. The surgeon then transferred to the surgical console. The mesosalpinx was then isolated on the right. The bipolar forceps were used to cauterize the mesosalpinx, and the tissue was transected using the monopolar scissors. The tissue was sequentially cauterized and cut until the right tube was excised and removed through the accessory port. The mesosalpinx on the left side was then isolated. The tissue was sequentially cauterized with the fenestrated forceps and transected with the monopolar scissors until the left tube was excised and removed through the accessory port. Both fallopian tubes were sent to pathology. Hemostasis was noted. All instruments were removed atraumatically. The da Sinai robot was undocked. The insufflation was released and the trocars were removed atraumatically. The incisions were infiltrated with dilute marcaine solution, reapproximated with 4-0 Monocryl and covered with skin glue. The V-care uterine manipulator and spence catheter were removed. The patient was then extubated and taken to the recovery room in stable condition. All lap and needle counts were correct x2.
--- NOTE | 2020-11-17 13:00 | Short Stay Summary ---
Short Stay Documentation Date of service: 11/17/20 - History H&P: dictated Social history: no significant social history - Allergies and Medications Current Medications: Allergies No Known Allergies Allergy (Unverified 11/09/20 16:48) Home Medications Medication Instructions Recorded Confirmed Last Taken Type Norethindrone-E.estradiol-Iron 1 each PO DAILY 11/09/20 11/09/20 Unknown History [Junel Fe 1.5 mg-30 Mcg Tablet] Active Medications Acetaminophen (Acetaminophen 500 Mg Tab) 1,000 mg PO PREOP LEYLA Stop: 11/17/20 23:00 Celecoxib (Celecoxib 200 Mg Cap) 200 mg PO PREOP NR Stop: 11/17/20 20:00 Gabapentin (Gabapentin 300 Mg Cap) 300 mg PO PREOP NR Stop: 11/17/20 20:00 Lactated Ringer's (Lactated Ringers) 1,000 mls @ 100 mls/hr IV DIRECT LEYLA Stop: 11/17/20 23:59 Cefazolin Sodium 3 gm/ Sodium (Chloride) 100 mls @ 100 mls/30 min IV PREOP NR; Protocol Stop: 11/17/20 21:00 Midazolam HCl (Midazolam 2 Mg/2 Ml Inj) 2 mg IV PREOP NR Stop: 11/17/20 20:00 Scopolamine (Scopolamine Transdermal Patch 72 Hr) 1 each TD PREOP NR Stop: 11/17/20 20:00 - Physical exam Breasts: deferred - Brief post op/procedure progress note Date of procedure: 11/17/20 Pre-op diagnosis: Undesired Fertility, Morbid Obesity Post-op diagnosis: same Procedure: Robotic Bilateral Salpingectomy Anesthesia: GETA Findings: 1) Normal sized anteverted uterus that sounded to 8 cm 2) Normal appearing ovaries and fallopian tubes Surgeon: ARMANDO SPARKS Estimated blood loss: minimal (10 mL) Pathology: list (bilateral fallopian tubes to pathology) Specimen disposition: to lab Condition: stable - Hospital course Hospital course: Pt underwent robotic salpingectomy which she tolerated well. She was observed in the PACU until she met discharge criteria. She will follow up next week in the office for an incision check. - Disposition Condition at discharge: Stable Disposition: DC- TO HOME OR SELFCARE - Discharge Diagnoses (1) Encounter for sterilization Status: Acute (2) Morbid obesity Status: Acute (3) Hypertension Status: Acute Qualifiers: Hypertension type: unspecified Qualified Code(s): I10 - Essential (primary) hypertension Short Stay Discharge Plan Activity: other (Nothing in vagina, no intercourse, no tub baths for 4 wks ) Weight Bearing Status: Full Weight Bearing Diet: regular Wound: keep clean and dry Follow up with: PRIMARY CARE, [Primary Care Provider] - 7 Days ARMANDO SPARKS MD [Staff Physician] - 7 Days Prescriptions: Ibuprofen [Motrin] 800 mg PO Q8HR PRN #30 tablet PRN Reason: Pain, Moderate (4-6) oxyCODONE /ACETAMINOPHEN [Percocet 5/325] 1 tab PO Q6HR PRN #40 tablet PRN Reason: Pain
[2020-11-17] MEDS ORDERED: SODIUM CHLORIDE 0.9% IRR 1,500 ML BOTTLE IR ONE (13:04)
[2020-11-17] MEDS ORDERED: HYDROmorphone 1 MG/1 ML INJ IV PRN ×2 (13:49)
[2020-11-17] MEDS ORDERED: ONDANSETRON 4 MG/2 ML INJ IV ONE (14:09)
[2020-11-17] MEDS ORDERED: oxyCODONE /ACETAMINOPHEN 5-325MG TAB PO PRN (14:30)
[2020-11-17 16:11] VITALS: BP 121/75
--- NOTE | 2020-11-17 16:41 | Post Anesthesia Evaluation ---
- Post Anesthesia Evaluation Patient Participated: Yes Airway Patent: Yes Stable Respiratory Function: Yes Nausea/Vomiting: No Temp > 96.8F: Yes Pain Manageable: Yes Adequeate Hydration: Yes Anesthesia Complications: No
== END 2020-11-17 14:57 | disposition home or self-care (01) ==
LOC: OR 07:50
PROVIDERS: ATTEND Obstetrics & Gynecology
DX: Z30.2 Encounter for sterilization (principal); Z20.822 Contact with and (suspected) exposure to COVID-19; E66.01 Morbid (severe) obesity due to excess calories; D25.2 Subserosal leiomyoma of uterus; I10 Essential (primary) hypertension; G43.909 Migraine, unspecified, not intractable, without status migrainosus; Z79.899 Other long term (current) drug therapy; Z90.49 Acquired absence of other specified parts of digestive tract; Z72.89 Other problems related to lifestyle; Z83.3 Family history of diabetes mellitus; Z68.42 Body mass index [BMI] 45.0-49.9, adult; Z82.49 Family history of ischemic heart disease and other diseases of the circulatory system
CPT/HCPCS: 36415; 58670; 84703; 85027; 88302; J0330; J0690; J1170; J2250; J2405; J2704; J3010; J7120; S2900; U0003